=== PATIENT | male | born 1990 | race Caucasian/White ===

== ENCOUNTER 2022-10-13 15:05 | Emergency (ER) | payer MEDICAID ==
[~2022-10-13] VITALS: Ht 172.7 cm; Wt 85.0 kg
[2022-10-13 15:22] VITALS: BP 148/72
[2022-10-13] MEDS ORDERED: SODIUM CHLORIDE 0.9% 1,000 ML IV ONE (15:45)
== END 2022-10-13 19:12 | disposition home or self-care (01) ==
LOC: ER 15:14
DX: F10.129 Alcohol abuse with intoxication, unspecified (principal); Y90.9 Presence of alcohol in blood, level not specified; G92.9 Unspecified toxic encephalopathy; R41.82 Altered mental status, unspecified
CPT/HCPCS: 70450; 99284; J7030